=== PATIENT | female | born 1995 | race American Indian/Alaskan Native ===

== ENCOUNTER 2016-06-11 15:12 | Emergency (ER) | payer BC, MEDICAID ==
[2016-06-11 17:00] LABS: Hematocrit 32.7 % (30.3-42.9); Hemoglobin 10.5 gm/dl (10.1-14.3); Mean Corpuscular HGB Conc 32 % (30-34); Mean Corpuscular Hemoglobin 28 pg (28-32); Mean Corpuscular Volume 86 fl (79-97); Red Blood Count 3.79 M/mm3 (3.65-5.03); Red Cell Distribution Width 13.8 % (13.2-15.2); White Blood Count 15.1 K/mm3 (4.5-11.0)
[2016-06-11 17:02] LABS: INR 0.98 (0.87-1.13)
[2016-06-11 17:12] LABS: Anion Gap 21 mmol/L; Blood Urea Nitrogen 7 mg/dL (7-17); Calcium 9.1 mg/dL (8.4-10.2); Carbon Dioxide 20 mmol/L (22-30); Chloride 98.7 mmol/L (98-107); Glucose 77 mg/dL (65-100); Potassium 3.6 mmol/L (3.6-5.0); Sodium 136 mmol/L (137-145)
[2016-06-11 17:14] LABS: Alanine Aminotransferase 5 units/L (7-56); Albumin 3.9 g/dL (3.9-5); Albumin/Globulin Ratio 1.2 %; Alkaline Phosphatase 61 units/L (35-129); Bilirubin,Total 0.4 mg/dL (0.1-1.2); Total Protein 7.2 g/dL (6.3-8.2)
[2016-06-11 17:17] LABS: Bilirubin,Direct < 0.2 mg/dL (0-0.2); Bilirubin,Indirect 0.2 mg/dL
[2016-06-11 17:41] LABS: Platelet Count 195 K/mm3 (140-440)
--- NOTE | 2016-06-11 17:49 | Emergency Department Report ---
- General Chief complaint: Skin/Abscess/Foreign Body Stated complaint: CHEST PAIN/BUMP ON BUTT/ 8 WKS PREG Time Seen by Provider: 06/11/16 17:47 Source: patient Mode of arrival: Ambulatory Limitations: No Limitations - History of Present Illness Initial comments: Patient ED complaining of gradually worsening bump on her buttocks area that is been progressively getting worse over the past 2 weeks. Patient states at about 12:00 today she started developing palpitations chest pain chills and the swelling significantly worse since then. complaint: abscess/boil -: Gradual, week(s) Location: buttocks, genitals Severity scale (0 -10): 9 Quality: aching Consistency: constant Improves with: none Worsens with: palpation, movement Associated symptoms: fever, chills Treatments Prior to Arrival: bandages, OTC topical medication - Related Data Previous Rx's Medication Instructions Recorded Last Taken Type oxyCODONE /ACETAMINOPHEN [Percocet 1 - 2 tab PO Q4HR PRN #10 tablet 06/12/16 Unknown Rx 5/325 mg] Allergies Allergy/AdvReac Type Severity Reaction Status Date / Time No Known Allergies Allergy Verified 07/31/14 06:38 Abscess Boil HPI - HPI Chief Complaint: Skin/Abscess/Foreign Body Stated Complaint: CHEST PAIN/BUMP ON BUTT/ 8 WKS PREG Time Seen by Provider: 06/11/16 17:47 Duration: 3 Days Location: Perianal History: Yes Fever, Yes Pain, No Purulent Drainage, No Numbness, No Foreign Body , No Previous History, No Insect Bite Home Medications: Previous Rx's Medication Instructions Recorded Last Taken Type oxyCODONE /ACETAMINOPHEN [Percocet 1 - 2 tab PO Q4HR PRN #10 tablet 06/12/16 Unknown Rx 5/325 mg] Allergies/Adverse Reactions: Allergies Allergy/AdvReac Type Severity Reaction Status Date / Time No Known Allergies Allergy Verified 07/31/14 06:38 ED Review of Systems ROS: Stated complaint: CHEST PAIN/BUMP ON BUTT/ 8 WKS PREG Other details as noted in HPI Constitutional: chills, fever, malaise ENT: as per HPI Respiratory: no symptoms reported Cardiovascular: chest pain, palpitations Gastrointestinal: nausea. denies: abdominal pain, vomiting, diarrhea Genitourinary: other (pt complaining of large" painful swollen lump in her genital area.") Skin: other (large swollen tender laterally and majora) Neurological: headache ED Past Medical Hx - Past Medical History Hx Hypertension: No Hx Diabetes: No Hx Deep Vein Thrombosis: No Hx Renal Disease: No Hx Sickle Cell Disease: No Hx Seizures: No Hx Asthma: No Hx HIV: No - Surgical History Past Surgical History?: No - Social History Smoking Status: Never Smoker Substance Use Type: None - Medications Home Medications: Home Medications Medication Instructions Recorded Confirmed Last Taken Type oxyCODONE /ACETAMINOPHEN [Percocet 1 - 2 tab PO Q4HR PRN #10 tablet 06/12/16 Unknown Rx 5/325 mg] ED Physical Exam - General Limitations: No Limitations General appearance: alert - Head Head exam: Present: atraumatic, normocephalic - Eye Eye exam: Present: normal appearance, PERRL, EOMI - ENT ENT exam: Present: mucous membranes moist - Neck Neck exam: Present: normal inspection. Absent: tenderness, meningismus - Respiratory Respiratory exam: Present: normal lung sounds bilaterally. Absent: respiratory distress, wheezes - Cardiovascular Cardiovascular Exam: Present: tachycardia - GI/Abdominal GI/Abdominal exam: Present: soft. Absent: distended, tenderness, guarding, rebound, rigid - Rectal Rectal exam: Present: other (patient has large tender cellulitic fluctuant lesion/abscess extending from right lab U majora. Perineum to anus. Cannot discern at this point if this is infected Bartholin's cyst or large perianal abscess) - External exam: Present: erythema, swelling - Expanded Exam Expanded image: 1 - cellulitis abscess. no crepitus noted.no discharge. no lymphangitis. - Extremities Exam Extremities exam: Present: normal capillary refill. Absent: pedal edema - Neurological Exam Neurological exam: Present: alert, oriented X3. Absent: altered - Skin Skin exam: Present: warm, dry, erythema ED Course Vital Signs 06/11/16 06/11/16 06/11/16 15:37 19:33 19:56 Temperature 99.2 F 97.9 F 98.5 F Pulse Rate 115 H 75 123 H Respiratory 20 14 16 Rate Blood Pressure 117/70 190/94 Blood Pressure 100/65 [Right] O2 Sat by Pulse 100 97 100 Oximetry 06/11/16 06/12/16 06/12/16 22:00 00:49 01:26 Temperature 98.0 F Pulse Rate 90 96 H Respiratory 18 16 16 Rate Blood Pressure Blood Pressure 84/69 111/67 [Right] O2 Sat by Pulse 100 97 Oximetry - Reevaluation(s) Reevaluation #1: 06/11/16 23:33 pt resting comfortably in room awaiting Thompson to return from sx. I called Dr Richardson and she advised that she would discharge pt - Consultations Consultation #1: 06/11/16 18:41 Just discussed case with SENIOR BRANCH MANAGER, states she is on her way to ER down to assess patient herself. ED Medical Decision Making - Lab Data Result diagrams: 06/11/16 16:30 06/11/16 16:30 Lab Results 06/11/16 06/11/16 06/11/16 Range/Units 16:30 16:30 16:30 WBC 15.1 H (4.5-11.0) K/mm3 RBC 3.79 (3.65-5.03) M/mm3 Hgb 10.5 (10.1-14.3) gm/dl Hct 32.7 (30.3-42.9) % MCV 86 (79-97) fl MCH 28 (28-32) pg MCHC 32 (30-34) % RDW 13.8 (13.2-15.2) % Plt Count 195 (140-440) K/mm3 Lymph % (Auto) Operations Staff Specialist Security [place] % (Auto) Operations Staff Specialist Security Eos % (Auto) Operations Staff Specialist Security Baso % (Auto) Operations Staff Specialist Security Lymph # Operations Staff Specialist Security [place] # Operations Staff Specialist Security Eos # Operations Staff Specialist Security Baso # Operations Staff Specialist Security Seg Neutrophils % Operations Staff Specialist Security Seg Neutrophils # Operations Staff Specialist Security PT 12.9 (12.2-14.9) Sec. INR 0.98 (0.87-1.13) Sodium 136 L (137-145) mmol/L Potassium 3.6 (3.6-5.0) mmol/L Chloride 98.7 (98-107) mmol/L Carbon Dioxide 20 L (22-30) mmol/L Anion Gap 21 mmol/L BUN 7 (7-17) mg/dL Creatinine 0.4 L (0.7-1.2) mg/dL Estimated GFR > 60 ml/min BUN/Creatinine Ratio 17.50 % Glucose 77 (65-100) mg/dL Calcium 9.1 (8.4-10.2) mg/dL Total Bilirubin (0.1-1.2) mg/dL Direct Bilirubin (0-0.2) mg/dL Indirect Bilirubin mg/dL AST (5-40) units/L ALT (7-56) units/L Alkaline Phosphatase (35-129) units/L Troponin T < 0.010 (0.00-0.029) ng/mL Total Protein (6.3-8.2) g/dL Albumin (3.9-5) g/dL Albumin/Globulin Ratio % 03//17 Range/Units 16:30 WBC (4.5-11.0) K/mm3 RBC (3.65-5.03) M/mm3 Hgb (10.1-14.3) gm/dl Hct (30.3-42.9) % MCV (79-97) fl MCH (28-32) pg MCHC (30-34) % RDW (13.2-15.2) % Plt Count (140-440) K/mm3 Lymph % (Auto) [place] % (Auto) Eos % (Auto) Baso % (Auto) Lymph # [place] # Eos # Baso # Seg Neutrophils % Seg Neutrophils # PT (12.2-14.9) Sec. INR (0.87-1.13) Sodium (137-145) mmol/L Potassium (3.6-5.0) mmol/L Chloride (98-107) mmol/L Carbon Dioxide (22-30) mmol/L Anion Gap mmol/L BUN (7-17) mg/dL Creatinine (0.7-1.2) mg/dL Estimated GFR ml/min BUN/Creatinine Ratio % Glucose (65-100) mg/dL Calcium (8.4-10.2) mg/dL Total Bilirubin 0.4 (0.1-1.2) mg/dL Direct Bilirubin < 0.2 (0-0.2) mg/dL Indirect Bilirubin 0.2 mg/dL AST 11 (5-40) units/L ALT 5 L (7-56) units/L Alkaline Phosphatase 61 (35-129) units/L Troponin T (0.00-0.029) ng/mL Total Protein 7.2 (6.3-8.2) g/dL Albumin 3.9 (3.9-5) g/dL Albumin/Globulin Ratio 1.2 % Critical care attestation.: If time is entered above; I have spent that time in minutes in the direct care of this critically ill patient, excluding procedure time. ED Disposition Clinical Impression: Bartholin cyst Disposition: DISCHARGED TO HOME OR SELFCARE Is pt being admited?: No Condition: Good Instructions: Bartholin Cyst (ED), Incision and Drainage (ED) Prescriptions: oxyCODONE /ACETAMINOPHEN [Percocet 5/325 mg] 1 - 2 tab PO Q4HR PRN #10 tablet PRN Reason: Pain Referrals: XAVIER RICHARDSON MD [Staff Physician] - 06/14/16 11:15 am (June 14, 2016 at 1115 in the [place] office) Forms: Work/School Release Form(ED)
[2016-06-11] MEDS ORDERED: NACL 0.9% 1000 ML 1,000 ML IV ONE (18:07)
[2016-06-11] MEDS ORDERED: ROCEPHIN/NS 1 GM/50 ML 1 GM/50 ML BAG IV ONE (19:13)
[2016-06-11] MEDS ORDERED: EMLA TP ONE (19:13)
[2016-06-11] MEDS ORDERED: XYLOCAINE 2%/EPI 1:100,000 INFILTRATI ONE (19:13)
[2016-06-11] MEDS ORDERED: TYLENOL PO ONE (20:56)
[2016-06-11] MEDS ORDERED: TYLENOL ONE (21:05)
[2016-06-11] MEDS ORDERED: MORPHINE IV ONE (21:50)
--- NOTE | 2016-06-12 01:01 | Discharge Summary ---
Providers - Providers Date of discharge: 06/12/16 Primary care physician: GOLF BALL WINDER Hospitalization Reason for admission: vulvar abscess Condition: Good Procedures: Incision and drainage of right vulvar abscess Hospital course: This is a 21-year-old female who is 4 para 1 who is currently 17 weeks and 3 days gestational age known to our practice. She presented to the emergency room complaining of swelling and pain in the vaginal area that started yesterday at noon. On evaluation patient had a right posterior vulvar abscess it did not appear to involve the rectum. After consents were obtained questions were encouraged and answered. Lidocaine was applied to the abscess and then the area was cleaned with Betadine 3. Then the area was anesthetized with 1% lidocaine with epinephrine (3 mL's). Incision and drainage was performed. There was drainage of approximately 25 mL of purulent bloody fluid. There was no Word catheter available therefore the wound was packed with quarter inch packing tape. Patient was observed. Once her vital signs were stable and her labs were reviewed she was given wound care precautions and instructions. heart tones were auscultated with Doppler at 140s. Patient is now discharged home. She was given 1 dose of Rocephin 1 g IV prior to I&D. Disposition: DISCHARGED TO HOME OR SELFCARE - Discharge Diagnoses (1) Vulvar abscess Status: Acute (2) 17 weeks gestation of Status: Acute Core Measure Documentation - Palliative Care Palliative Care/ Comfort Measures: Not Applicable - Core Measures Any of the following diagnoses?: none Exam - Constitutional Vitals: Temp Pulse Resp BP Pulse Ox 98.0 F 90 16 84/69 100 06/12/16 00:49 06/12/16 00:49 06/12/16 00:49 06/12/16 00:49 06/12/16 00:49 General appearance: Present: no acute distress - Respiratory Respiratory effort: normal - Cardiovascular Rhythm: regular - Extremities Extremities: no ischemia, No edema - Abdominal General gastrointestinal: Present: soft, non-tender Female genitourinary: Present: other (see hospital course.) - Integumentary Integumentary: Present: clear, warm, dry Plan Activity: other (no sex.) Weight Bearing Status: Weight Bear as Tolerated Diet: regular, low cholesterol Wound: open to air, keep clean and dry Special Instructions: no heavy lifting Additional Instructions: Patient is to avoid nonsterile instruments inflammatory medications Motrin. Augmentin prescription has been electronically prescribed to [facility] Sotomayor per patient request. Follow up with: XAVIER CIHLDS MD [Staff Physician] - 06/14/16 11:15 am (June 14, 2016 at 1115 in the [place] office) Prescriptions: oxyCODONE /ACETAMINOPHEN [Percocet 5/325 mg] 1 - 2 tab PO Q4HR PRN #10 tablet PRN Reason: Pain
[2016-06-12 01:28] VITALS: BP 111/67
== END 2016-06-12 02:25 | disposition home or self-care (01) ==
LOC: ED 15:12
DX: O26.891 Other specified pregnancy related conditions, first trimester (principal); N75.0 Cyst of Bartholin's gland; Z3A.08 8 weeks gestation of pregnancy
CPT/HCPCS: 36415; 80048; 80074; 82140; 84484; 84702; 85025; 85610; 87040; 87116; 93005; 93010; 96361; 96365; 96375; 99284; J0696; J2270; J7030

== ENCOUNTER 2016-10-21 12:04 | Outpatient (CLI) | payer BC, MEDICAID ==
[2016-10-21 12:36] VITALS: BP 112/75
[2016-10-21] MEDS ORDERED: LACTATED RINGERS 500 ML IV ONE (12:48)
== END 2016-10-21 13:09 | disposition home or self-care (01) ==
LOC: TRG 12:04
PROVIDERS: ATTEND Obstetrics & Gynecology
DX: Z34.93 Encounter for supervision of normal pregnancy, unspecified, third trimester (principal); Z3A.36 36 weeks gestation of pregnancy
CPT/HCPCS: 59025

== ENCOUNTER 2016-11-07 08:11 | Outpatient (CLI) | payer BC ==
[2016-11-07 08:41] VITALS: BP 114/75
[2016-11-07] MEDS ORDERED: LACTATED RINGERS 1,000 ML ONE (08:53)
[2016-11-07] MEDS ORDERED: LACTATED RINGERS 1,000 ML IV SCH (09:00)
== END 2016-11-07 10:04 | disposition home or self-care (01) ==
LOC: TRG 08:11
PROVIDERS: ATTEND Obstetrics & Gynecology
DX: O47.1 False labor at or after 37 completed weeks of gestation (principal); Z3A.38 38 weeks gestation of pregnancy
CPT/HCPCS: 59025; 96360; J7120

== ENCOUNTER 2016-11-07 15:38 | Inpatient (IN) | payer BC ==
[2016-11-07 17:50] LABS: Basophils % (Auto) 0.2 % (0.0-1.8); Eosinophils % (Auto) 0.1 % (0.0-4.3); Hematocrit 32.2 % (30.3-42.9); Hemoglobin 10.3 gm/dl (10.1-14.3); Mean Corpuscular HGB Conc 32 % (30-34); Mean Corpuscular Volume 81 fl (79-97); Platelet Count 205 K/mm3 (140-440); Red Blood Count 3.97 M/mm3 (3.65-5.03); Red Cell Distribution Width 14.5 % (13.2-15.2); White Blood Count 8.5 K/mm3 (4.5-11.0)
[2016-11-07 17:59] LABS: Mean Corpuscular Hemoglobin 26 pg (28-32)
[2016-11-07 18:18] LABS: HIV-1 Antigen p24 Non React (Non React); HIVR-1/2 Ab Non React (Non React)
[2016-11-07] MEDS ORDERED: PITOCin/NS 20 UNIT/1000ML DRIP 20,000 MILLIUNITS/1,000 ML BAG IV ONE (19:36)
[2016-11-07] MEDS ORDERED: VISTARIL PO ONE (20:00)
--- NOTE | 2016-11-07 20:03 | Procedure Note ---
OB Delivery Note - Delivery Date of Delivery: 11/07/16 Surgeon: MARLA TREJO Preparation Room Manager: OLINDA BARKER Estimated blood loss: 300cc - Vaginal Delivery presentation: vertex Delivery position: OA Intrapartum events: no care Delivery induction: none Delivery monitor: external FHT Route of delivery: Delivery placenta: spontaneous Delivery cord: nuchal cord, 3 umbilical vessels Episiotomy: none Delivery laceration: none Anesthesia: none Delivery comments: Called urgently to LDR for eminent delivery. Dr.St Luigi morales. Vertex on perineum as I gloved. live born male, CAN X 1 reduced, to mom's abdomen skin to skin Cord blood obtained Placenta and membrane delivered complete and intact, 3 vessel cord. Pit IM. 8/9, EBL 300, Wgt 6-4. Pt OOB to shower. Returned to bed Bleeding moderate FF @ umb. Mom and baby remain LDR stable. - Infant A at 1 minute: 8 at 5 minutes: 9 Gender: Male (wgt 6-4)
[2016-11-07] MEDS ORDERED: TORADOL ONE (20:12)
[2016-11-07] MEDS ORDERED: TORADOL IV ONE (20:16)
[2016-11-07] MEDS ORDERED: LANSINOH TP PRN (20:17)
[2016-11-07] MEDS ORDERED: MILK OF MAGNESIA PO PRN (20:17)
[2016-11-07] MEDS ORDERED: DULCOLAX PR PRN (20:17)
[2016-11-07] MEDS ORDERED: BENADRYL PO PRN (20:17)
[2016-11-07] MEDS ORDERED: ZOFRAN IV PRN (20:17)
[2016-11-07] MEDS ORDERED: PHENERGAN PO PRN (20:17)
[2016-11-07] MEDS ORDERED: PHENERGAN PR PRN (20:17)
[2016-11-07] MEDS ORDERED: TUCKS PAD TP PRN (20:17)
[2016-11-07] MEDS ORDERED: TYLENOL PO PRN (20:17)
--- NOTE | 2016-11-07 20:33 | History and Physical Report ---
History of Present Illness Date of examination: 11/07/16 Date of admission: 11/07/16 19:32 Chief complaint: labor History of present illness: 21y/o @ 38+6 weeks presents in active labor with regular uterine contractions. The patient has had minimal care during her . She denies any complications during the . Her GBS status is unknown. Past History Past Medical History: no pertinent history Past Surgical History: no surgical history Social history: single - Obstetrical History : 3 Para: 1 Hx # Term Pregnancies: 1 Number of Pregnancies: 0 Spontaneous Abortions: 1 Induced : 0 Number of Living Children: 1 Medications and Allergies Allergies Allergy/AdvReac Type Severity Reaction Status Date / Time No Known Allergies Allergy Verified 07/31/14 06:38 Home Medications Medication Instructions Recorded Confirmed Last Taken Type oxyCODONE /ACETAMINOPHEN [Percocet 1 - 2 tab PO Q4HR PRN #10 tablet 06/12/16 Unknown Rx 5/325 mg] Active Meds: Active Medications Acetaminophen (Tylenol) 650 mg PO Q4H PRN PRN Reason: Pain MILD(1-3)/Fever >100.5/ROME Bisacodyl (Dulcolax) 10 mg FL BID PRN PRN Reason: Constipation Diphenhydramine HCl (Benadryl) 25 mg PO Q6H PRN PRN Reason: Itching Ibuprofen (Motrin) 600 mg PO Q6H PRABHA Magnesium Hydroxide (Milk Of Magnesia) 30 ml PO HS PRN PRN Reason: Constipation Multi-Ingredient Ointment (Lansinoh) 1 applic TP PRN PRN PRN Reason: Sore Nipples Ondansetron HCl (Zofran) 4 mg IV Q8H PRN PRN Reason: Nausea And Vomiting Oxycodone/Acetaminophen (Percocet 5/325) 1 tab PO Q6H PRN PRN Reason: Pain, Moderate (4-6) Promethazine HCl (Phenergan) 25 mg FL Q6H PRN PRN Reason: Nausea And Vomiting Promethazine HCl (Phenergan) 25 mg PO Q6H PRN PRN Reason: Nausea And Vomiting Sodium Chloride (Sodium Chloride Flush Syringe 10 Ml) 10 ml IV PRN NR Witch [place]isha/Glycerin (Tucks Pad) 1 each TP PRN PRN PRN Reason: Hemorrhoid/cleansing/soothing Review of Systems All systems: negative Genitourinary: contractions - Vital Signs Vital signs: Vital Signs Pulse BP 88 125/77 11/07/16 16:03 11/07/16 16:03 Temp Pulse Resp BP Pulse Ox 97.7 F 86 16 116/74 68 L 11/07/16 18:34 11/07/16 19:13 11/07/16 18:34 11/07/16 18:34 11/07/16 19:13 - Physical Exam Breasts: Positive: deferred Cardiovascular: Regular rate Lungs: Positive: Clear to auscultation Abdomen: Positive: normal appearance Results Result Diagrams: 11/08/16 08:33 Abnormal lab results 11/07/16 Range/Units 17:22 MCH 26 L (28-32) pg [place] % (Auto) 7.9 H (0.0-7.3) % Seg Neutrophils % 76.0 H (40.0-70.0) % All other labs normal. Assessment and Plan - Patient Problems (1) Insufficient care Current Visit: Yes Status: Acute Qualifiers: Trimester: T Plan to address problem: admit to L&D (2) Active labor at term Current Visit: Yes Status: Acute (3) 38 weeks gestation of Current Visit: No Status: Acute
[2016-11-07] MEDS ORDERED: SODIUM CHLORIDE FLUSH SYRINGE 10 ML IV NR (21:00)
[2016-11-07] MEDS: PERCOCET 5/325 PO PRN (21:46)
[2016-11-07] MEDS: MOTRIN PO SCH (23:54)
[2016-11-08 04:05] LABS: Urine Drugs of Abuse Note Disclamer
[2016-11-08] MEDS: MOTRIN PO SCH ×4 (05:05→20:10)
--- NOTE | 2016-11-08 08:54 | Progress Note ---
Assessment and Plan - Patient Problems (1) Spontaneous vaginal delivery Current Visit: No Status: Acute Plan to address problem: will continued to be monitored for unknown GBS status anticipate discharge home tomorrow Subjective - Subjective Date of service: 11/08/16 Interval history: Patient passed a vaginal clot. Bleeding has decreased. Having minor cramping. in room Patient reports: appetite normal, voiding normally, pain well controlled [place]: doing well Objective - Vital Signs Latest vital signs: Vital Signs Temp Pulse Resp BP Pulse Ox 11/08/16 04:00 98.6 F 77 16 101/69 11/08/16 00:00 98.6 F 77 16 121/61 11/07/16 22:20 98.6 F 84 16 115/66 11/07/16 21:26 93 H 123/66 11/07/16 21:11 100 H 126/72 11/07/16 20:56 100 H 117/71 11/07/16 20:41 95 H 127/79 11/07/16 20:00 97.9 F 95 H 18 127/79 11/07/16 19:13 86 68 L 11/07/16 19:08 110 H 93 11/07/16 19:07 112 H 97 11/07/16 19:05 125 H 99 11/07/16 19:03 123 H 99 11/07/16 18:59 121 H 96 11/07/16 18:54 113 H 94 11/07/16 18:51 107 H 99 11/07/16 18:50 102 H 97 11/07/16 18:45 105 H 98 11/07/16 18:40 117 H 93 11/07/16 18:37 104 H 98 11/07/16 18:35 97 H 98 11/07/16 18:34 97.7 F 89 16 116/74 11/07/16 18:30 97 H 98 11/07/16 18:24 107 H 99 11/07/16 18:19 98 H 116/74 99 11/07/16 18:18 90 99 11/07/16 16:17 90 112/61 11/07/16 16:03 88 125/77 Intake and Output 11/07/16 11/08/16 11/08/16 22:59 06:59 14:59 Intake Total 675 375 Output Total 1200 Balance 675 -825 Intake: IV 125 125 PITOCin/NS 20 UNIT/1000ML 125 125 DRIP 20,000 milliunits In 1,000 ml As IV .ST- [facility] Rx#:[id number] Oral 250 250 Intake, Free Water 300 Output: Urine 1200 Void 1200 Other: Total, Intake Amount 250 250 Total, Output Amount 400 # Voids Void 1 Weight 54.885 kg Estimated Blood Loss 300 - Exam Abdomen: Present: normal appearance, soft Uterus: Present: normal, firm, fundal height below umbilicus - Labs Labs: Abnormal lab results 11/07/16 Range/Units 17:22 MCH 26 L (28-32) pg [place] % (Auto) 7.9 H (0.0-7.3) % Seg Neutrophils % 76.0 H (40.0-70.0) %
[2016-11-08 08:58] LABS: Hematocrit 30.1 % (30.3-42.9); Hemoglobin 9.6 gm/dl (10.1-14.3)
[2016-11-08] MEDS: PERCOCET 5/325 PO PRN (09:01)
[2016-11-09] MEDS: MOTRIN PO SCH ×4 (00:17→18:00)
--- NOTE | 2016-11-09 08:44 | Progress Note ---
Assessment and Plan - Patient Problems (1) Spontaneous vaginal delivery Current Visit: No Status: Acute Plan to address problem: doing well discharge home with infant Subjective - Subjective Date of service: 11/09/16 Interval history: Patient without complaints. Tolerating regular diet without difficulty. Pain well controlled Patient reports: appetite normal, voiding normally, pain well controlled : doing well Objective - Vital Signs Latest vital signs: Vital Signs Temp Pulse Resp BP 11/09/16 06:07 18 11/09/16 01:17 18 11/09/16 00:17 18 11/09/16 00:00 98.7 F 64 18 124/78 11/08/16 20:10 18 11/08/16 16:00 98.7 F 69 20 99/61 11/08/16 12:00 98.7 F 80 16 105/78 Intake and Output 11/08/16 11/09/16 11/09/16 22:59 06:59 14:59 Intake Total 840 Balance 840 Intake: Oral 840 Other: Total, Intake Amount 360 # Voids Void 1 1 # Bowel Movements 1 - Exam Uterus: Present: normal, firm, fundal height below umbilicus - Labs Labs: Abnormal lab results 11/08/16 Range/Units 08:33 Hgb 9.6 L (10.1-14.3) gm/dl Hct 30.1 L (30.3-42.9) %
--- NOTE | 2016-11-09 08:46 | Discharge Summary ---
Providers - Providers Date of Admission: 11/07/16 19:32 Date of discharge: 11/09/16 Attending physician: MARLA TREJO Primary care physician: MARLA TREJO Hospitalization Reason for admission: active labor, IUP at term Delivery: Other procedures: none Discharge diagnosis: IUP at term delivered baby: male Hospital course: Patient admitted in triage with active labor. Minimal care during . Had a precipitous delivery of liveborn male . uncomplicated Condition at discharge: Good Disposition: DC-01 TO HOME OR SELFCARE - Discharge Diagnoses (1) Spontaneous vaginal delivery Status: Acute Plan - Discharge Medications Prescriptions: HYDROcodone/APAP 5-325 [[place] 5/325] 1 each PO Q6HR PRN #30 tablet PRN Reason: Pain Ibuprofen [Motrin] 800 mg PO Q8HR PRN #60 tablet PRN Reason: Pain - Provider Discharge Summary Activity: no sex for 6 weeks, no heavy lifting 4 weeks, no strenuous exercise Diet: routine Instructions: routine Additional instructions: [] Smoking cessation referral if applicable(refer to patient education folder for contact #) [] Refer to [facility]'s [facility] Center Booklet Call your doctor immediately for: * Fever > 100.5 * Heavy vaginal bleeding ( >1 pad per hour) * Severe persistent headache * Shortness of breath * Reddened, hot, painful area to leg or breast * followup 4 weeks * [facility]'s obgyn * [address] [place] [address] rd * [phone] - Follow up plan Forms: [facility] Discharge Summary
[2016-11-09] MEDS: PERCOCET 5/325 PO PRN (14:07)
[2016-11-09 18:29] VITALS: BP 118/62
== END 2016-11-09 22:30 | disposition home or self-care (01) | DRG 775 ==
LOC: TRG 15:38 → LD 19:32 → OB 22:20
PROVIDERS: ADMIT Obstetrics & Gynecology; ATTEND Obstetrics & Gynecology
PROC: 10E0XZZ Delivery of Products of Conception, External Approach (ICD-10-PCS; principal; 2016-11-07)
DX: O69.1XX0 Labor and delivery complicated by cord around neck, with compression, not applicable or unspecified (principal); O62.3 Precipitate labor; Z3A.38 38 weeks gestation of pregnancy; Z37.0 Single live birth
CPT/HCPCS: 36415; 80307; 85014; 85018; 85025; 86592; 86706; 86762; 86850; 86900; 86901; 87806; 99211; A6250; G0463; J1885; J2590

== ENCOUNTER 2017-03-25 10:27 | Emergency (ER) | payer BC ==
[2017-03-25 10:52] VITALS: BP 126/76
[2017-03-25] MEDS ORDERED: ASPIRIN PO ONE (10:52)
[2017-03-25 11:12] LABS: Basophils % (Auto) 0.5 % (0.0-1.8); Eosinophils % (Auto) 0.4 % (0.0-4.3); Hematocrit 37.9 % (30.3-42.9); Hemoglobin 12.5 gm/dl (10.1-14.3); Lymphocytes # (Auto) 1.1 K/mm3 (1.2-5.4); Lymphocytes % (Auto) 13.5 % (13.4-35.0); Mean Corpuscular HGB Conc 33 % (30-34); Mean Corpuscular Hemoglobin 27 pg (28-32); Mean Corpuscular Volume 83 fl (79-97); Monocytes # (Auto) 0.6 K/mm3 (0.0-0.8); Monocytes % (Auto) 7.6 % (0.0-7.3); Platelet Count 230 K/mm3 (140-440); Red Blood Count 4.59 M/mm3 (3.65-5.03); Red Cell Distribution Width 13.7 % (13.2-15.2)
[2017-03-25 11:33] LABS: BUN/Creatinine Ratio 26; Blood Urea Nitrogen 13 mg/dL (7-17); Calcium 9.1 mg/dL (8.4-10.2); Hemolysis Index 8
== END 2017-03-25 20:00 | disposition left against medical advice (07) ==
LOC: ED 10:27
DX: J02.9 Acute pharyngitis, unspecified (principal); R07.9 Chest pain, unspecified; Z53.21 Procedure and treatment not carried out due to patient leaving prior to being seen by health care provider
CPT/HCPCS: 36415; 80048; 84484; 85025; 93005; 93010

== ENCOUNTER 2018-05-12 13:30 | Emergency (ER) | payer BC, OTHER ==
[2018-05-12 13:41] VITALS: BP 107/74
--- NOTE | 2018-05-12 13:41 | Emergency Department Report ---
Blank Doc - Documentation Documentation: 22 yo female presents with vaginal bleeding and pelvic pain x tuesday 5 days ago, states took test was positive last week, but was negative 2 weeks before LMP unsure This initial assessment diagnostic orders/clinical plan/treatment (s) is/Are subject change based on patient's health status, clinical progression and re- assessment by fellow clinical providers in the ED. Further treatment and work-up at subsequent clinical providers discretion. Patient/guardians urged not to elope from their condition may be serious if not clinically assessed and managed. Initial order include: quant,cbc type and screen US ACC evaluate
--- NOTE | 2018-05-12 14:19 | Emergency Department Report ---
ED Female HPI - General Chief complaint: Vaginal Bleeding Stated complaint: /POSS MISCARRIAGE Time Seen by Provider: 05/12/18 13:36 Source: patient, RN notes reviewed, old records reviewed Mode of arrival: Ambulatory Limitations: No Limitations - History of Present Illness Initial comments: This is a 22-year-old female. The patient is not known to this provider previously. 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 The patient is reportedly 4, para 2. Her last menstrual period was in March. She presents to the emergency room today with cramping vaginal bleeding, times one week, lower back pain that radiates to the left lower quadrant. Symptoms intermittent, and do not have exacerbating or relieving factors. Patient reports no outpatient ultrasound, and no outpatient care. The patient reports no urinary symptoms at this time. MD Complaint: vaginal bleeding -: Gradual, days(s) Location: suprapubic Radiation: LLQ Severity: mild Quality: cramping Consistency: intermittent Improves with: none Worsens with: none Are you Now?: Yes - Related Data Sexually active: Yes Previous Rx's Medication Instructions Recorded Last Taken Type RX: oxyCODONE /ACETAMINOPHEN 1 - 2 tab PO Q4HR PRN #10 tablet 06/12/16 Unknown Rx [Percocet 5/325 mg] HYDROcodone/APAP 5-325 [[place] 1 each PO Q6HR PRN #30 tablet 11/09/16 Unknown Rx 5/325] Ibuprofen [Motrin] 800 mg PO Q8HR PRN #60 tablet 11/09/16 Unknown Rx cephALEXin [Keflex] 500 mg PO Q12HR 5 Days #10 cap 02/03/18 Unknown Rx Doxylamine Succinate/Vit B6 1 each PO QHS PRN #30 tablet. 05/12/18 Unknown Rx [Emilio Villanueva 10-10 mg Tablet] Vit-Fe Fumar-FA [ 1 tab PO QDAY #30 tablet 05/12/18 Unknown Rx Vitamin] Allergies Allergy/AdvReac Type Severity Reaction Status Date / Time No Known Allergies Allergy Verified 02/03/18 11:16 ED Review of Systems ROS: Stated complaint: /POSS MISCARRIAGE Other details as noted in HPI Constitutional: denies: fever, malaise Eyes: denies: vision change ENT: denies: epistaxis Respiratory: denies: cough Cardiovascular: denies: chest pain Gastrointestinal: abdominal pain Genitourinary: abnormal menses. denies: dysuria Musculoskeletal: back pain Skin: denies: lesions Neurological: denies: weakness Psychiatric: denies: anxiety, depression ED Past Medical Hx - Past Medical History Previous Medical History?: No Hx Hypertension: No Hx Congestive Heart Failure: No Hx Diabetes: No Hx Deep Vein Thrombosis: No Hx Renal Disease: No Hx Sickle Cell Disease: No Hx Seizures: No Hx Asthma: No Hx COPD: No Hx HIV: No - Surgical History Past Surgical History?: No - Social History Smoking Status: Never Smoker Substance Use Type: None - Medications Home Medications: Home Medications Medication Instructions Recorded Confirmed Last Taken Type RX: oxyCODONE /ACETAMINOPHEN 1 - 2 tab PO Q4HR PRN #10 tablet 06/12/16 11/08/16 Unknown Rx [Percocet 5/325 mg] HYDROcodone/APAP 5-325 [[place] 1 each PO Q6HR PRN #30 tablet 11/09/16 Unknown Rx 5/325] Ibuprofen [Motrin] 800 mg PO Q8HR PRN #60 tablet 11/09/16 Unknown Rx cephALEXin [Keflex] 500 mg PO Q12HR 5 Days #10 cap 02/03/18 Unknown Rx Doxylamine Succinate/Vit B6 1 each PO QHS PRN #30 tablet. 05/12/18 Unknown Rx [Emilio Villanueva 10-10 mg Tablet] Vit-Fe Fumar-FA [ 1 tab PO QDAY #30 tablet 05/12/18 Unknown Rx Vitamin] ED Physical Exam - General Limitations: No Limitations General appearance: alert, in no apparent distress - Head Head exam: Present: atraumatic, normocephalic - Eye Eye exam: Present: normal appearance, EOMI. Absent: nystagmus - ENT ENT exam: Present: normal exam, normal orophraynx, mucous membranes moist, normal external ear exam - Neck Neck exam: Present: normal inspection, full ROM. Absent: tenderness, meningismus - Respiratory Respiratory exam: Present: normal lung sounds bilaterally. Absent: respiratory distress - Cardiovascular Cardiovascular Exam: Present: regular rate, normal rhythm, normal heart sounds. Absent: bradycardia, tachycardia, irregular rhythm, systolic murmur, diastolic murmur, rubs, gallop - GI/Abdominal GI/Abdominal exam: Present: soft. Absent: distended, tenderness, guarding, rebound, rigid, pulsatile mass - Extremities Exam Extremities exam: Present: normal inspection, full ROM, other (2+ pulses noted in the bilateral upper, lower extremities. Compartments soft. No long bony tenderness. The pelvis is stable.). Absent: pedal edema, joint swelling, calf tenderness - Back Exam Back exam: Present: normal inspection, full ROM. Absent: tenderness, CVA tenderness (R), paraspinal tenderness, vertebral tenderness - Neurological Exam Neurological exam: Present: alert, oriented X3, CN II-XII intact, normal gait, other (Extraocular movements intact. Tongue midline. No facial droop. Facial sensation intact to light touch in the V1, V2, V3 distribution bilaterally. 5 and 5 strength in 4 extremities.. Sensation is intact to light touch in 4 extremities.). Absent: motor sensory deficit - Psychiatric Psychiatric exam: Present: normal affect, normal mood - Skin Skin exam: Present: warm, dry, intact, normal color. Absent: rash ED Course Vital Signs 05/12/18 13:40 Temperature 98.2 F Pulse Rate 92 H Respiratory 16 Rate Blood Pressure 107/74 [Left] O2 Sat by Pulse 96 Oximetry - Reevaluation(s) Reevaluation #1: 05/12/18 19:36 Patient presented back to the emergency room for her paperwork. She denied complaints. She verbalized understanding to her discharge instructions. ED Medical Decision Making - Lab Data Result diagrams: 05/12/18 14:02 Vital Signs 05/12/18 13:40 Temperature 98.2 F Pulse Rate 92 H Respiratory 16 Rate Blood Pressure 107/74 [Left] O2 Sat by Pulse 96 Oximetry Lab Results 05/12/18 05/12/18 05/12/18 Range/Units 14:02 14:02 14:02 WBC 6.0 (4.5-11.0) K/mm3 RBC 4.31 (3.65-5.03) M/mm3 Hgb 12.3 (10.1-14.3) gm/dl Hct 37.2 (30.3-42.9) % MCV 86 (79-97) fl MCH 29 (28-32) pg MCHC 33 (30-34) % RDW 12.9 L (13.2-15.2) % Plt Count 268 (140-440) K/mm3 Lymph % (Auto) 23.6 (13.4-35.0) % [place] % (Auto) 8.2 H (0.0-7.3) % Eos % (Auto) 5.4 H (0.0-4.3) % Baso % (Auto) 0.9 (0.0-1.8) % Lymph # 1.4 (1.2-5.4) K/mm3 [place] # 0.5 (0.0-0.8) K/mm3 Eos # 0.3 (0.0-0.4) K/mm3 Baso # 0.1 (0.0-0.1) K/mm3 Seg Neutrophils % 61.9 (40.0-70.0) % Seg Neutrophils # 3.7 (1.8-7.7) K/mm3 HCG, Quant 9.18 H (0-4) mIU/mL Urine Color (Yellow) Urine Turbidity (Clear) Urine pH (5.0-7.0) Ur Specific [place] (1.003-1.030) Urine Protein (Negative) mg/dL Urine Glucose (UA) (Negative) mg/dL Urine Ketones (Negative) mg/dL Urine Blood (Negative) Urine Nitrite (Negative) Urine Bilirubin (Negative) Urine Urobilinogen (<2.0) mg/dL Ur Leukocyte Esterase (Negative) Urine WBC (Auto) (0.0-6.0) /HPF Urine RBC (Auto) (0.0-6.0) /HPF U Epithel Cells (Auto) (0-13.0) /HPF Urine Mucus /HPF Blood Type B POSITIVE Antibody Screen Negative 05/12/18 Range/Units 14:26 WBC (4.5-11.0) K/mm3 RBC (3.65-5.03) M/mm3 Hgb (10.1-14.3) gm/dl Hct (30.3-42.9) % MCV (79-97) fl MCH (28-32) pg MCHC (30-34) % RDW (13.2-15.2) % Plt Count (140-440) K/mm3 Lymph % (Auto) (13.4-35.0) % [place] % (Auto) (0.0-7.3) % Eos % (Auto) (0.0-4.3) % Baso % (Auto) (0.0-1.8) % Lymph # (1.2-5.4) K/mm3 [place] # (0.0-0.8) K/mm3 Eos # (0.0-0.4) K/mm3 Baso # (0.0-0.1) K/mm3 Seg Neutrophils % (40.0-70.0) % Seg Neutrophils # (1.8-7.7) K/mm3 HCG, Quant (0-4) mIU/mL Urine Color Yellow (Yellow) Urine Turbidity Cloudy (Clear) Urine pH 6.0 (5.0-7.0) Ur Specific [place] 1.027 (1.003-1.030) Urine Protein 30 mg/dl (Negative) mg/dL Urine Glucose (UA) Neg (Negative) mg/dL Urine Ketones Neg (Negative) mg/dL Urine Blood Neg (Negative) Urine Nitrite Neg (Negative) Urine Bilirubin Neg (Negative) Urine Urobilinogen 2.0 (<2.0) mg/dL Ur Leukocyte Esterase Sm (Negative) Urine WBC (Auto) 11.0 H (0.0-6.0) /HPF Urine RBC (Auto) 5.0 (0.0-6.0) /HPF U Epithel Cells (Auto) 20.0 H (0-13.0) /HPF Urine Mucus 3+ /HPF Blood Type Antibody Screen - Radiology Data Radiology results: report reviewed, image reviewed Obstetrics ultrasound demonstrates no intrauterine gestation. Uterus and ov asif otherwise appeared to be within normal limits. - Medical Decision Making Differential diagnosis, including not limited to: Miscarriage, miscarriage, ectopic Assessment and plan: 22-year-old female with weakly positive quantitative hCG, hemodynamically stable, no significant lower abdominal tenderness, suspect complete miscarriage. Patient Rh+, patient has been observed in the emergency room for many hours without clinical decompensation. Her ultrasound is reviewed and appreciated. Unfortunately, the patient left without telling anyone that she was leaving. 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 Critical care attestation.: If time is entered above; I have spent that time in minutes in the direct care of this critically ill patient, excluding procedure time. ED Disposition Clinical Impression: Miscarriage Disposition: DC-01 TO HOME OR SELFCARE Is pt being admited?: No Does the pt Need Aspirin: No Condition: Good Instructions: Spontaneous Miscarriage (ED) Additional Instructions: Rest, avoid heavy lifting, and avoid strenuous physical activities. Follow up with a primary care doctor, events and promotions assistant, urgent care center, will return to this emergency room in 2-3 days for repeat checkup/evaluation, quantitative hCG blood test. Do not have sex and avoid sexual activity. Take medications as needed/directed. Patient most likely having a miscarriage. Please follow up with a events and promotions assistant as soon as possible for further care for your miscarriage as well. Return to the emergency room right away with new, worsening or different symptoms. Prescriptions: Doxylamine Succinate/Vit B6 [Emilio Villanueva 10-10 mg Tablet] 1 each PO QHS PRN #30 tablet. PRN Reason: Nausea Vit-Fe Fumar-FA [ Vitamin] 1 tab PO QDAY #30 tablet Referrals: [facility] [Provider Group] - 3-5 Days [facility] [Provider Group] - 3-5 Days [facility] [Provider [facility]] - 3-5 Days
[2018-05-12 14:26] LABS: Basophils # (Auto) 0.1 K/mm3 (0.0-0.1); Basophils % (Auto) 0.9 % (0.0-1.8); Eosinophils # (Auto) 0.3 K/mm3 (0.0-0.4); Eosinophils % (Auto) 5.4 % (0.0-4.3); Hematocrit 37.2 % (30.3-42.9); Hemoglobin 12.3 gm/dl (10.1-14.3); Lymphocytes # (Auto) 1.4 K/mm3 (1.2-5.4); Lymphocytes % (Auto) 23.6 % (13.4-35.0); Mean Corpuscular HGB Conc 33 % (30-34); Mean Corpuscular Volume 86 fl (79-97); Monocytes # (Auto) 0.5 K/mm3 (0.0-0.8); Monocytes % (Auto) 8.2 % (0.0-7.3); Platelet Count 268 K/mm3 (140-440); Red Blood Count 4.31 M/mm3 (3.65-5.03); Red Cell Distribution Width 12.9 % (13.2-15.2)
[2018-05-12 14:57] LABS: Bilirubin,Urine NEG (Negative); Blood,Urine NEG (Negative); Color,Urine Yellow (Yellow); Mucus,Urine 3+ /HPF
--- NOTE | 2018-05-15 14:09 | Ultrasound Report ---
PROCEDURE: US OB TRANSVAGINAL HISTORY: miscarriage FINDINGS: Real-time ultrasound of the pelvis was performed by transabdominal and endovaginal techniqu e. No intrauterine gestation is seen. The endometrial stripe measures 0.38 cm which is within normal martinez its. The left ovary measures 1.0 x 3.2 x 2.3 cm. The right ovary measures 1.7 x 2.3 x 1.9 cm. There is no adnexal mass or evidence of ovarian torsion. IMPRESSION: No intrauterine gestation is seen The uterus and ovaries appear within normal limits This document is electronically signed by Silvano Rao MD., May 12 2018 05:57:23 PM ET
--- NOTE | 2018-05-15 14:09 | Ultrasound Report ---
PROCEDURE: US OB <= 14 WEEKS FETUS HISTORY: miscarriage FINDINGS: Real-time ultrasound of the pelvis was performed by transabdominal and endovaginal techniqu e. No intrauterine gestation is seen. The endometrial stripe measures 0.38 cm which is within normal martinez its. The left ovary measures 1.0 x 3.2 x 2.3 cm. The right ovary measures 1.7 x 2.3 x 1.9 cm. There is no adnexal mass or evidence of ovarian torsion. IMPRESSION: No intrauterine gestation is seen The uterus and ovaries appear within normal limits This document is electronically signed by Silvano Rao MD., May 12 2018 05:57:42 PM ET
== END 2018-05-12 19:37 | disposition home or self-care (01) ==
LOC: ED 13:30
DX: O03.9 Complete or unspecified spontaneous abortion without complication (principal); Z3A.01 Less than 8 weeks gestation of pregnancy
CPT/HCPCS: 36415; 76801; 76817; 81001; 84702; 85025; 86850; 86900; 86901; 99284

== ENCOUNTER 2018-12-27 23:46 | Emergency (ER) | payer BC, OTHER ==
[2018-12-28 00:08] VITALS: BP 118/74
[2018-12-28 00:47] LABS: Basophils # (Auto) 0.1 K/mm3 (0.0-0.1); Basophils % (Auto) 1.3 % (0.0-1.8); Eosinophils # (Auto) 0.1 K/mm3 (0.0-0.4); Eosinophils % (Auto) 3.1 % (0.0-4.3); Hematocrit 34.5 % (30.3-42.9); Hemoglobin 11.2 gm/dl (10.1-14.3); Lymphocytes # (Auto) 1.9 K/mm3 (1.2-5.4); Lymphocytes % (Auto) 40.3 % (13.4-35.0); Mean Corpuscular HGB Conc 32 % (30-34); Mean Corpuscular Volume 85 fl (79-97); Monocytes # (Auto) 0.5 K/mm3 (0.0-0.8); Monocytes % (Auto) 10.1 % (0.0-7.3); Platelet Count 264 K/mm3 (140-440); Red Blood Count 4.08 M/mm3 (3.65-5.03); Red Cell Distribution Width 12.9 % (13.2-15.2)
[2018-12-28 00:50] LABS: Bilirubin,Urine NEG (Negative); Blood,Urine NEG (Negative); Color,Urine Yellow (Yellow); Mucus,Urine 3+ /HPF
--- NOTE | 2018-12-28 02:24 | XRay Report ---
CHEST 2 VIEWS INDICATION / CLINICAL INFORMATION: chest pain. COMPARISON: None available. FINDINGS: SUPPORT DEVICES: None. HEART / MEDIASTINUM: No significant abnormality. LUNGS / PLEURA: No significant pulmonary or pleural abnormality. No pneumothorax. ADDITIONAL FINDINGS: No significant additional findings. IMPRESSION: 1. No acute findings. Signer Name: Gerard Romero MD Signed: 12/28/2018 2:20 AM Workstation Name: [id number]
--- NOTE | 2018-12-28 02:34 | Emergency Department Report ---
<CHETNA KENNEDY - Last Filed: 12/28/18 03:41> ED General Adult HPI - General Chief complaint: Vaginal Bleeding Stated complaint: VAGINAL BLEEDING/CHEST TIGHTING Time Seen by Provider: 12/28/18 01:28 Source: patient Mode of arrival: Ambulatory Limitations: No Limitations - History of Present Illness Initial comments: Patient is a 22-year-old -Monegas[place] female who presents for abnormal uterine bleeding 4 days patient has history of abnormal cycles since she started control. Months ago and has secondary complaint of chest pain or shortness of breath tonight. There is a history of asthma, patient denies whee zing or chest tightness at 3/10 symptoms exacerbated by environmental exposure. Symptoms relieved by nothing. there is no dizziness no light headedness, n/v ,no cp, no n/v ,no diaphoresis, no wheezing, no stridor. Onset/Timin -: days(s) Location: abdomen Radiation: non-radiation Severity scale (0 -10): 4 Quality: other (cramping ) Consistency: intermittent Improves with: none Worsens with: movement Associated Symptoms: shortness of breath. denies: confusion, chest pain, cough, diaphoresis, fever/chills, headaches, loss of appetite, malaise, nausea/vomiting, rash, syncope, weakness Treatments Prior to Arrival: none - Related Data Previous Rx's Medication Instructions Recorded Last Taken Type oxyCODONE /ACETAMINOPHEN [Percocet 1 - 2 tab PO Q4HR PRN #10 tablet 06/12/16 Unknown Rx 5/325 mg] HYDROcodone/APAP 5-325 [[place] 1 each PO Q6HR PRN #30 tablet 11/09/16 Unknown Rx 5/325] cephALEXin [Keflex] 500 mg PO Q12HR 5 Days #10 cap 02/03/18 Unknown Rx Doxylamine Succinate/Vit B6 1 each PO QHS PRN #30 tablet. 05/12/18 Unknown Rx [Emilio Villanueva 10-10 mg Tablet] Vit-Fe Fumar-FA [ 1 tab PO QDAY #30 tablet 05/12/18 Unknown Rx Vitamin] Ibuprofen [Motrin 800 MG tab] 800 mg PO Q8HR PRN #20 tablet 12/28/18 Unknown Rx Nitrofurantoin [place]/M-Cryst 100 mg PO BID 5 Days #10 capsule 12/28/18 Unknown Rx [Macrobid CAP] Allergies Allergy/AdvReac Type Severity Reaction Status Date / Time No Known Allergies Allergy Verified 02/03/18 11:16 ED Review of Systems Constitutional: denies: chills, fever Eyes: denies: eye pain, eye discharge, vision change ENT: denies: ear pain, throat pain, congestion Respiratory: shortness of breath. denies: cough, orthopnea, stridor, wheezing Cardiovascular: chest pain. denies: palpitations, dyspnea on exertion, orthopnea, edema, syncope, paroxysmal nocturnal dyspnea Endocrine: no symptoms reported Gastrointestinal: abdominal pain. denies: nausea, vomiting, diarrhea, hematemesis, melena, hematochezia Genitourinary: abnormal menses. denies: urgency, dysuria, frequency, hematuria, discharge Musculoskeletal: denies: back pain, joint swelling, arthralgia Skin: denies: rash, lesions Neurological: denies: headache, weakness, paresthesias Psychiatric: anxiety. denies: depression Hematological/Lymphatic: denies: easy bleeding, easy bruising ED Past Medical Hx - Past Medical History Previous Medical History?: No Hx Hypertension: No Hx Congestive Heart Failure: No Hx Diabetes: No Hx Deep Vein Thrombosis: No Hx Renal Disease: No Hx Sickle Cell Disease: No Hx Seizures: No Hx Asthma: No Hx COPD: No Hx HIV: No - Surgical History Past Surgical History?: No - Social History Smoking Status: Never Smoker Substance Use Type: None - Medications Home Medications: Home Medications Medication Instructions Recorded Confirmed Last Taken Type oxyCODONE /ACETAMINOPHEN [Percocet 1 - 2 tab PO Q4HR PRN #10 tablet 06/12/16 11/08/16 Unknown Rx 5/325 mg] HYDROcodone/APAP 5-325 [[place] 1 each PO Q6HR PRN #30 tablet 11/09/16 Unknown Rx 5/325] cephALEXin [Keflex] 500 mg PO Q12HR 5 Days #10 cap 02/03/18 Unknown Rx Doxylamine Succinate/Vit B6 1 each PO QHS PRN #30 tablet. 05/12/18 Unknown Rx [Emilio Villanueva 10-10 mg Tablet] Vit-Fe Fumar-FA [ 1 tab PO QDAY #30 tablet 05/12/18 Unknown Rx Vitamin] Ibuprofen [Motrin 800 MG tab] 800 mg PO Q8HR PRN #20 tablet 12/28/18 Unknown Rx Nitrofurantoin [place]/M-Cryst 100 mg PO BID 5 Days #10 capsule 12/28/18 Unknown Rx [Macrobid CAP] ED Physical Exam - General Limitations: No Limitations General appearance: alert, in no apparent distress - Head Head exam: Present: atraumatic, normocephalic - Eye Eye exam: Present: normal appearance, EOMI Pupils: Present: normal accommodation - ENT ENT exam: Present: normal orophraynx, mucous membranes moist, TM's normal bilaterally, normal external ear exam - Neck Neck exam: Present: normal inspection, full ROM. Absent: tenderness, meningismus, lymphadenopathy, thyromegaly - Respiratory Respiratory exam: Present: normal lung sounds bilaterally, chest wall tenderness (anterior chest wall radiating to mid back). Absent: respiratory distress, wheezes, rales, rhonchi, stridor, prolonged expiratory - Cardiovascular Cardiovascular Exam: Present: regular rate, normal rhythm, normal heart sounds. Absent: systolic murmur, diastolic murmur, rubs, gallop - GI/Abdominal GI/Abdominal exam: Present: soft, normal bowel sounds. Absent: distended, tenderness, bruit, hernia - Rectal Rectal exam: Present: deferred - Extremities Exam Extremities exam: Present: normal inspection, full ROM, normal capillary refill. Absent: tenderness, pedal edema, joint swelling, calf tenderness - Back Exam Back exam: Present: normal inspection, full ROM. Absent: tenderness, CVA tenderness (R), CVA tenderness (L), muscle spasm, paraspinal tenderness, rash noted - Neurological Exam Neurological exam: Present: alert, oriented X3, CN II-XII intact, normal gait - Psychiatric Psychiatric exam: Present: normal affect, anxious - Skin Skin exam: Present: warm, dry, intact, normal color. Absent: rash ED Medical Decision Making - Lab Data Result diagrams: 12/28/18 00:25 Labs 12/28/18 12/28/18 12/28/18 00:25 00:25 00:25 WBC 4.7 RBC 4.08 Hgb 11.2 Hct 34.5 MCV 85 MCH 27 L MCHC 32 RDW 12.9 L Plt Count 264 Lymph % (Auto) 40.3 H [place] % (Auto) 10.1 H Eos % (Auto) 3.1 Baso % (Auto) 1.3 Lymph # 1.9 [place] # 0.5 Eos # 0.1 Baso # 0.1 Seg Neutrophils % 45.2 Seg Neutrophils # 2.1 PT INR APTT D-Dimer HCG, Qual Negative Urine Color Urine Turbidity Urine pH Ur Specific [place] Urine Protein Urine Glucose (UA) Urine Ketones Urine Blood Urine Nitrite Urine Bilirubin Urine Urobilinogen Ur Leukocyte Esterase Urine WBC (Auto) Urine RBC (Auto) U Epithel Cells (Auto) Urine Mucus Blood Type B POSITIVE 12/28/18 12/28/18 00:30 02:09 WBC RBC Hgb Hct MCV MCH MCHC RDW Plt Count Lymph % (Auto) [place] % (Auto) Eos % (Auto) Baso % (Auto) Lymph # [place] # Eos # Baso # Seg Neutrophils % Seg Neutrophils # PT 12.4 INR 0.95 APTT 25.8 D-Dimer 2165.86 H HCG, Qual Urine Color Yellow Urine Turbidity Slightly-cloudy Urine pH 7.0 Ur Specific [place] 1.026 Urine Protein 30 mg/dl Urine Glucose (UA) Neg Urine Ketones Neg Urine Blood Neg Urine Nitrite Neg Urine Bilirubin Neg Urine Urobilinogen 4.0 Ur Leukocyte Esterase Tr Urine WBC (Auto) 12.0 H Urine RBC (Auto) 3.0 U Epithel Cells (Auto) 7.0 Urine Mucus 3+ Blood Type - EKG Data EKG shows normal: sinus rhythm, axis, intervals, QRS complexes, ST-T waves Rate: normal - EKG Data When compared to previous EKG there are: no significant change Interpretation: normal EKG (EKG interp by ED attending, NSR NO [facility], ) - Radiology Data Radiology results: report reviewed, image reviewed Ordering Physician: CHETNA KENNEDY NP Date of Service: 12/28/18 Procedure(s): XR chest routine 2V Accession Number(s): [id number] cc: CHETNA KENNEDY NP Fluoro Time In Minutes: CHEST 2 VIEWS INDICATION / CLINICAL INFORMATION: chest pain. COMPARISON: None available. FINDINGS: SUPPORT DEVICES: None. HEART / MEDIASTINUM: No significant abnormality. LUNGS / PLEURA: No significant pulmonary or pleural abnormality. No pneumothorax. ADDITIONAL FINDINGS: No significant additional findings. IMPRESSION: 1. No acute findings. Signer Name: Gerard Romero MD Signed: 12/28/2018 2:20 AM Workstation Name: [id number] Transcribed By: RONALD Dictated By: Gerard Romero MD Electronically Authenticated By: Gerard Romero MD Signed Date/Time: 12/28/18219 DD/ 9 TD/TT: CTA: - Medical Decision Making cxr: normal infiltrates no opacities, D dimer: [id number]: CTA chest : pending: Ekg: NSR no st elevated TN, ua: pos for luek & wbc: will tx for uti, HCG: neg, If CTA pos for large PE will offer admission versus out pt tx with Eliquis PE protocol if appropriate. I have discussed possible tx plans with patient and she verbalizes agreement and undestanding with same, pending CTA result: Pt care hand off at this to colleague who will follow CTA result and dispo ap propriately. ED Disposition Clinical Impression: Dysmenorrhea, Chest wall pain, SOB (shortness of breath) UTI (urinary tract infection) Qualifiers: Urinary tract infection type: acute cystitis Hematuria presence: without hematuria Qualified Code(s): N30.00 - Acute cystitis without hematuria Disposition: TO HOME OR SELFCARE Condition: Stable Instructions: Chest Pain (ED), Dysmenorrhea (ED), Urinary Tract Infection in Women (ED) Additional Instructions: Please take medication as prescribed. Drink plenty of water. Use ice packs, heating pads, rest. follow up with a primary care doctor and FRENCH TRANSLATOR in the next 3-5 days. return to the emergency room for any new or worsening symptoms. Prescriptions: Nitrofurantoin [place]/M-Cryst [Macrobid CAP] 100 mg PO BID 5 Days #10 capsule Ibuprofen [Motrin 800 MG tab] 800 mg PO Q8HR PRN #20 tablet PRN Reason: Pain Referrals: [facility] [Provider Group] - 3-5 Days [facility] [Provider Group] - 3-5 Days Print Language: MARTINIQUAIS <ASHER LU - Last Filed: 12/28/18 06:11> ED Review of Systems ROS: Stated complaint: VAGINAL BLEEDING/CHEST TIGHTING Other details as noted in HPI ED Course Vital Signs 12/28/18 00:03 Temperature 98.5 F Pulse Rate 80 Respiratory 14 Rate Blood Pressure 118/74 O2 Sat by Pulse 99 Oximetry ED Medical Decision Making - Lab Data Result diagrams: 12/28/18 00:25 12/28/18 03:45 - Radiology Data CT angio chest INDICATION / CLINICAL INFORMATION: chest pain sob. TECHNIQUE: Precontrast bolus timing images were obtained followed by postcontrast axial and reformatted images. 3-plane MIP reconstructions were performed at an independent workstation by the technologist. All CT scans at this location are performed using CT dose reduction for ALARA by means of automated exposure control. COMPARISON: None available. FINDINGS: Pulmonary arterial enhancement is normal, no evidence of pulmonary embolism. Mediastinal images are normal. No acute lung disease. Upper abdominal images are normal and there are no skeletal abnormalities. IMPRESSION: 1. No pulmonary embolus or acute lung disease. Signer Name: Gerard Romero MD Signed: 12/28/2018 5:52 AM Workstation Name: [id number] Transcribed By: RONALD Dictated By: Gerard Romero MD Electronically Authenticated By: Gerard Romero MD Signed Date/Time: 12/28/18 0552 - Medical Decision Making signed out by Bolivar Kennedy NP pending CTA chest CT angio chest shows: 1. No pulmonary embolus or acute lung disease. EKG is normal CXR is normal vitals are normal labs significant for elevated d-dimer otherwise stable, troponin is negative UA shows WBCs and trace leukocyte esterase pt given prescription for macrobid for UTI pt given prescription for ibuprofen due to her chest wall pain advised pt to follow up with a PCP and an FRENCH TRANSLATOR discussed with pt to talk to her FRENCH TRANSLATOR about her AUB and discuss her control advised pt to please take medication as prescribed. Drink plenty of water. Use ice packs, heating pads, rest. follow up with a primary care doctor and FRENCH TRANSLATOR in the next 3-5 days. return to the emergency room for any new or worsening symptoms. Critical care attestation.: If time is entered above; I have spent that time in minutes in the direct care of this critically ill patient, excluding procedure time. ED Disposition Is pt being admited?: No Does the pt Need Aspirin: No Time of Disposition: 05:57
[2018-12-28 02:46] LABS: INR 0.95 (0.87-1.13)
[2018-12-28 02:47] LABS: Partial Thromboplastin Time 25.8 Sec. (24.2-36.6)
[2018-12-28 04:08] LABS: BUN/Creatinine Ratio 12; Blood Urea Nitrogen 7 mg/dL (7-17); Calcium 9.1 mg/dL (8.4-10.2); Hemolysis Index 1
--- NOTE | 2018-12-28 05:57 | Cat Scan Report ---
CT angio chest INDICATION / CLINICAL INFORMATION: chest pain sob. TECHNIQUE: Precontrast bolus timing images were obtained followed by postcontrast axial and reformatted images. 3-plane MIP reconstructions were performed at an independent workstation by the technologist. All CT scans at this location are performed using CT dose reduction for ALARA by means of automated exposure control. COMPARISON: None available. FINDINGS: Pulmonary arterial enhancement is normal, no evidence of pulmonary embolism. Mediastinal images are normal. No acute lung disease. Upper abdominal images are normal and there are no skeletal abnormalities. IMPRESSION: 1. No pulmonary embolus or acute lung disease. Signer Name: Gerard Romero MD Signed: 12/28/2018 5:52 AM Workstation Name: [id number]
== END 2018-12-28 06:10 | disposition home or self-care (01) ==
LOC: ED 23:46
DX: N94.6 Dysmenorrhea, unspecified (principal); N39.0 Urinary tract infection, site not specified; R07.89 Other chest pain; R06.02 Shortness of breath; Z79.899 Other long term (current) drug therapy
CPT/HCPCS: 36415; 71046; 71275; 80048; 81001; 84484; 84703; 85025; 85379; 85610; 85730; 86900; 86901; 87086; 93005; 93010; 99284; Q9967